=== PATIENT | male | born 1960 | race Caucasian/White ===

== ENCOUNTER → 2022-04-24 09:50 | Outpatient (CLI) | payer OTHER, SELFPAY ==
[2022-04-24 11:27] LABS: COVID19 -Nasal RAPID Negative (Negative)
--- NOTE | 2022-04-26 20:21 | DI.NM.S_ITS ---
DATE OF SERVICE: 04/24/2022 PROCEDURE: Pharmacological perfusion study. INDICATION: Chest pain with underlying diabetes mellitus, hypertension, hyperlipidemia, obesity. RADIOPHARMACEUTICAL: 27.5 millicurie technetium-99m Myoview IV was injected at stress and 26.0 millicurie technetium-99m Myoview IV was injected at rest. CARDIAC STRESS: The patient underwent IV Lexiscan perfusion study under the supervision of an attending staff, as per standard Lexiscan protocol. The patient developed dyspnea and mild chest discomfort with radiation to the left arm during Lexiscan infusion, which got improved in recovery without any reversal agent. Baseline rhythm was sinus with mild sinus bradycardia. During stress, there were no convincing ischemic changes seen. Occasional PACs seen. The patient remained hemodynamically stable. Blood pressure was 150/82 mmHg. RAW DATA: There is increased subdiaphragmatic activity. The patient's weight is 220 pounds. GATED STUDY: Resting LV ejection fraction reported to be 44 percent and stress LV ejection fraction 61 percent. I do not see any obvious wall motion abnormality. Dilated left ventricle with resting end-diastolic volume 190 mL. TID ratio 0.91, which is within normal limits. Lung/heart ratio 0.52, which is abnormal. MYOCARDIAL PERFUSION SCAN: Stress supine, resting supine and stress prone images were compared to each other. Stress supine and resting supine images revealed moderate-size, mild to moderately decreased perfusion of inferior wall extending into the inferoapex, which got significantly improved during stress prone images, however stress prone images remaining have mildly decreased perfusion of inferior apex. No reversible ischemia. CONCLUSION: 1. No obvious reversible ischemia. 2. Evidence of diaphragmatic tissue attenuation artifact, which got significantly improved during stress prone images, as stated above, with some persistent inferoapical defect. Inferior wall and apex moving well without any obvious wall motion abnormality during stress gated images. Hence, most likely we are dealing with tissue attenuation artifact. Hence, we will call this study likely a normal myocardial perfusion study however, left ventricle is dilated. Lung/heart ratio 0.52, which is abnormal, suggestive of elevated filling pressure. Consider getting 2D echo to make sure there is no valvular pathology or diastolic dysfunction. In absence of reversible ischemia and preserved systolic function during stress, in that context, overall, this is a low-risk myocardial perfusion scan. Correlate clinically. Neptali Prince - [employer] CAR/fn/mario doc#: [id number]/job#: [id number] dd: 04/26/2022 16:44:00 dt: 04/26/2022 20:07:00 DICTATING MD/COPIES TO: Nori Argueta MD COPIES MNE: DAILY;
== END ==
PROVIDERS: PCP Internal Medicine; Referring Provider Family Medicine; Visit Provider Family Medicine
DX: R07.89 Other chest pain (principal); E11.9 Type 2 diabetes mellitus without complications; I10 Essential (primary) hypertension; E78.5 Hyperlipidemia, unspecified; E66.9 Obesity, unspecified; Z20.822 Contact with and (suspected) exposure to COVID-19
CPT/HCPCS: 78452; 87635; 93017; A9502; J2785

== ENCOUNTER 2024-02-12 08:30 | Outpatient (RCR) | payer MEDICARE, SELFPAY | END 2024-02-12 10:30 | LOC: PUL 08:30 | PROVIDERS: PCP Internal Medicine; Referring Provider Internal Medicine Critical Care Medicine; Visit Provider Internal Medicine Critical Care Medicine | DX: J44.9 Chronic obstructive pulmonary disease, unspecified (principal) | CPT/HCPCS: 94626; G0237; G0238 ==

== ENCOUNTER 2024-06-20 21:53 | Emergency (ER) | payer MEDICARE, MEDICAID, SELFPAY ==
[2024-06-20] VITALS (39 sets, daily range): BP systolic 77–150; BP diastolic 48–76; PULSE 88–102; RESP 14–30; O2SAT 95–100
[2024-06-20] MEDS: EPINEPHrine 1 MG/10 ML SYRINGE IV (21:53)
[2024-06-20] MEDS: EPINEPHrine 1 MG/ML IV (21:53)
--- NOTE | 2024-06-20 22:00 | PC.NURSE ---
2129: Patient was found in vehicle with agonal breathing and no pulse around 2129. 2134: Was pulled from vehicle and CPR was started 2139: EMS arrived where an IO was placed. 2144: First dose of 1mg Epi given. Igel placed by EMS. Patient was moved to [facility] and transferred to [facility]. Patient in [facility]. 2148: 1mg IV Epi given 2149: IO failed 2152: ROSC. Pulse 117. 2154: 20g JIM placed. Blood drawn. 2155: BP 191/91 2199: 20g RFA placed 2201: 400mg IV Ketamine given 2204: ET tube placed. 7.5 22.5 @ teeth, color change 2204: 61/35 HR 94 2205: Hutson placed 2206: Epi drip started, 7.5ml/hr, RFA 2210: 106/51 HR 90 O2 85 2212: xray present 8: 83/48 HR 100. O2 93%. Epi paused d/t line occlusion restarted now 2220: 100mg IV ketamine 2220: 83/50 HR 100 O2 95% 2223: 86/53 HR 96 2225: JIM PIV removed 222: 74/41 HR 92 2229: Epi 11.2ml/hr BP 77/48 HR 101 O2 98 2232: Norepi 0.05mcg/kg/min 20.6ml/hr 2238: Vent settings TV 500, Peep 5, 100% O2, Set rate 20.
--- NOTE | 2024-06-20 22:01 | ED.GENADULT ---
HPI - General Adult General Chief complaint: Unresponsive Stated complaint: unresponsive Time Seen by Provider: 06/20/24 21:59 Source: family Mode of arrival: Family Vehicle Limitations: altered mental status History of Present Illness HPI narrative: Patient was a 64-year-old male. He was called to the parking lot of the entrance of the emergency department secondary to an individual in respiratory distress. I arrived to the car finding the patient with agonal breathing and cyanotic in color. Initial pulse check revealed the patient had no carotid pulse. The patient was removed from the vehicle and placed on the ground next to the car. CPR was administered. Equipment was brought from the emergency department. Patient was given breasts by bag-valve. He was placed on a monitor in the parking lot. First pulse check showed that the patient was in [place]. CPR was continued. EMS arrived. IO started in the field by EMS. 1 mg of epinephrine was administered. CPR was continued. LMA was placed and field by EMS. Patient was moved to a gurney and brought into resuscitation room 1. Had a discussion with the family who came with the patient. Patient has a history of COPD. Also has a history of insulin-dependent diabetes, hypertension, obstructive sleep apnea. Patient just flew to [facility] from out of [place]. In route home patient started to have shortness of breath and what sounds like a ?impending sense of doom? patient became more short of breath during his ride home and was breathing and conscious when they pulled into the emergency department parking lot. Patient was unable to provide any HPI. Related Data Home Medications Medication Instructions Recorded Confirmed amlodipine 5 mg tablet 5 mg PO DAILY 08/20/23 04/21/24 atorvastatin 20 mg tablet 20 mg PO BEDTIME 08/20/23 04/21/24 budesonide 160 mcg-glycopyr 9 2 inh inhalation BID 08/20/23 04/21/24 mcg-formot 4.8 mcg/actuation HFA inhaler (Breztri Aerosphere) fluticasone propionate 50 2 spray intranasal QDAY 08/20/23 04/21/24 mcg/actuation nasal spray,suspension (Allergy Relief (fluticasone)) furosemide 20 mg tablet 20 mg PO DAILY 08/20/23 04/21/24 insulin glargine U-300 conc 300 50 unit SUBCUT DAILY 02/27/24 10/29/24 unit/mL (3 mL) subcutaneous pen (Toujeo Max U-300 SoloStar) lisinopril 40 mg tablet 40 mg PO DAILY 08/20/23 04/21/24 metformin 850 mg tablet 850 mg PO TID 08/20/23 04/21/24 metoprolol succinate 50 mg 50 mg PO DAILY 08/20/23 04/21/24 tablet,extended release 24 hr omeprazole 20 mg tablet,delayed 20 mg PO DAILY 08/20/23 04/21/24 release tamsulosin 0.4 mg capsule 0.4 mg PO DAILY 08/20/23 04/21/24 Previous Rx's Medication Instructions Recorded azithromycin 250 mg tablet 250 mg PO 3XW #36 tabs 08/21/23 Portable Oxygen #1 ea 12/09/23 Allergies Allergy/AdvReac Type Severity Reaction Status Date / Time No Known Drug Allergies Allergy Unverified 04/21/24 13:50 Review of Systems Review of Systems ROS Unobtainable: Unobtainable due to medical condition Patient History Social History Smoking Status: Former smoker Smoking Status: Former smoker Exam Initial Vital Signs Initial Vital Signs: Vital Signs Pulse Rate 96 H 06/20/24 22:28 Respiratory Rate 18 06/20/24 22:28 Blood Pressure 77/48 L 06/20/24 22:28 Pulse Oximetry 97 06/20/24 22:28 Oxygen Delivery Method Mechanical Ventilation 06/20/24 22:28 Const General: in distress and ill appearing [facility] Head: normal to inspection and normocephalic Resp Other: Respiratory distress, agonal breathing, cyanotic Cardio Other: Initial rhythm check PA, no initial carotid or radial pulse felt. GI Inspection: non-distended Skin Other: No open wounds noted Extrem Other: No gross deformities Procedures Central Line Placement Right IJ: Patient Placed on Monitor/Pulse Ox: Yes MD Prep: mask, gown and gloves Central Line Prep: Povidone-Iodine 1% Local Anesthetic: lidocaine 1% Amount of anesthesia used (mL): 5 Ultrasound Used for Placement: Yes Central Line Lumen Inserted: triple Post Procedure: sterile dressing applied and line stabilization device Post Procedure X-Ray: tip of catheter in good position Patient Tolerated Procedure: No complications Intubation sedative: Ketamine Mg Given: 400 paralytic: other (None) Laryngoscope: other ([place] scope) ET Tube Size: 7.5 ET Tube Uncuffed: Yes Tube Secured Location: teeth Tube Placement Confirmation: Visualized tube passing through cords, Equal breath sounds bilaterally, Confirmation by capnometry and Chest Xray Patient Tolerated Procedure: Well Course Orders Ordered: ED Orders 06/20/24 21:58 Complete Blood Count AUTO DIFF Stat Comprehensive Metabolic Panel Stat Ethanol (ETOH) Stat Lactate (Lactic Acid) Stat Lipase Stat Magnesium Stat PTT Partial Thromboplastin Luther Stat Phosphorous Stat Prothrombin Time INR Stat Troponin & CK Cardiac Panel Stat 06/20/24 22:00 XR chest 1V Stat ABG [Arterial Blood Gas] STAT EKG-12 Lead Stat 06/20/24 22:42 XR chest 1V Stat 06/20/24 23:06 CT angio chest PE protocol Stat CT head/brain wo con Stat 06/20/24 23:51 BNP [NT-proBNP (BNP-Adult 18+)] Stat Blood Culture Stat 06/21/24 00:00 Urine Drug Screen, Rapid Stat Midazolam HCl 50 mg/ Dextrose 50 mls @ 0 mls/hr IV TITRATE PRN; Protocol PRN Reason: Sedation Last Titration: 06/21/24 00:42 Dose: 5 mg/hr, 5 mls/hr Documented By: Titration: 06/21/24 00:26 Dose: 4 mg/hr, 4 mls/hr Documented By: Titration: 06/20/24 23:50 Dose: 5 mg/hr, 5 mls/hr Documented By: Titration: 06/20/24 23:14 Dose: 4 mg/hr, 4 mls/hr Documented By: Admin: 06/20/24 22:57 Dose: 2 mg/hr, 2 mls/hr Documented By: RL Fentanyl 1,000 mcg/ Dextrose 250 mls @ 19.313 mls/hr IV TITRATE KAUSHIK; Protocol Last Admin: 06/20/24 22:57 Dose: 1 mcg/kg/hr, 27.59 mls/hr Documented By: RL NOREPINEPHRINE BITARTRATE/D5W (Levophed) 4 mg in 250 mls @ 41.385 mls/hr IV TITRATE KAUSHIK; Protocol Last Admin: 06/20/24 22:32 Dose: 0.1 mcg/kg/min, 41.385 mls/hr Documented By: AMADOR Epinephrine HCl 4 mg/ Dextrose 250 mls @ 3.75 mls/hr IV TITRATE KAUSHIK; Protocol Last Titration: 06/20/24 22:29 Dose: 3 mcg/min, 11.25 mls/hr Documented By: Admin: 06/20/24 22:07 Dose: 2 mcg/min, 7.5 mls/hr Documented By: AMADOR Sodium Chloride (Normal Saline 0.9%) 1,000 mls @ 125 mls/hr IV CONT KAUSHIK Last Admin: 06/21/24 00:27 Dose: 125 mls/hr Documented By: RAFFI Discontinued Medications Epinephrine HCl (Epinephrine 1 Mg/10 Ml Syringe) 1 mg IV NOW ONE Stop: 06/20/24 21:46 Last Admin: 06/20/24 21:53 Dose: 1 mg Documented By: AMADOR Epinephrine HCl (Epinephrine 1 Mg/Ml) 1 mg IV NOW ONE Stop: 06/20/24 21:50 Last Admin: 06/20/24 21:53 Dose: 1 mg Documented By: AMADOR Sodium Chloride (Normal Saline 0.9%) 1,000 mls @ 1,000 mls/hr IV BOLUS ONE Stop: 06/20/24 22:58 Last Admin: 06/21/24 00:29 Dose: Not Given Documented By: RAFFI Piperacillin Sod/Tazobactam (Sod 4.5 gm/ Sodium Chloride) 100 mls @ 200 mls/hr IV NOW ONE Stop: 06/21/24 02:27 Last Admin: 06/21/24 02:30 Dose: 200 mls/hr Documented By: RAFFI Ketamine HCl (Ketamine 500 Mg/5 Ml Inj) 400 mg IV NOW ONE Stop: 06/20/24 22:03 Last Admin: 06/20/24 22:02 Dose: 400 mg Documented By: AMADOR Ketamine HCl (Ketamine 500 Mg/5 Ml Inj) 100 mg IV NOW ONE Stop: 06/20/24 22:21 Last Admin: 06/20/24 22:20 Dose: 100 mg Documented By: AMADOR Vital Signs Vital signs: Vital Signs - 8 hr 06/20/24 22:28 06/20/24 22:28 06/20/24 22:30 Pulse Rate 96 H Respiratory Rate 18 Blood Pressure 77/48 L 77/52 L Pulse Oximetry 97 Oxygen Delivery Method Mechanical Ventilation 06/20/24 22:30 06/20/24 22:33 06/20/24 22:33 Pulse Rate 99 H 97 H Respiratory Rate 24 17 Blood Pressure 90/55 L Pulse Oximetry 98 98 Oxygen Delivery Method 06/20/24 22:35 06/20/24 22:35 06/20/24 22:38 Pulse Rate 102 H Respiratory Rate 30 H Blood Pressure 93/63 118/65 Pulse Oximetry 99 Oxygen Delivery Method 06/20/24 22:38 06/20/24 22:40 06/20/24 22:40 Pulse Rate 102 H 100 H Respiratory Rate 16 14 Blood Pressure 147/76 H Pulse Oximetry 100 99 Oxygen Delivery Method 06/20/24 22:43 06/20/24 22:43 06/20/24 22:45 Pulse Rate 101 H Respiratory Rate 21 Blood Pressure 142/65 H 137/60 Pulse Oximetry 99 Oxygen Delivery Method 06/20/24 22:45 06/20/24 22:48 06/20/24 22:48 Pulse Rate 95 H 102 H Respiratory Rate 20 21 Blood Pressure 133/64 Pulse Oximetry 98 98 Oxygen Delivery Method 06/20/24 22:51 06/20/24 22:51 06/20/24 22:53 Pulse Rate 93 H Respiratory Rate 19 Blood Pressure 128/63 102/55 L Pulse Oximetry 96 Oxygen Delivery Method 06/20/24 22:53 06/20/24 22:55 06/20/24 22:55 Pulse Rate 93 H 95 H Respiratory Rate 20 20 Blood Pressure 116/58 L Pulse Oximetry 96 95 Oxygen Delivery Method 06/20/24 22:58 06/20/24 22:58 06/20/24 23:00 Pulse Rate 94 H Respiratory Rate 20 Blood Pressure 119/56 L 114/58 L Pulse Oximetry 95 Oxygen Delivery Method 06/20/24 23:00 06/20/24 23:03 06/20/24 23:03 Pulse Rate 94 H 99 H Respiratory Rate 20 22 Blood Pressure 108/62 Pulse Oximetry 95 96 Oxygen Delivery Method 06/20/24 23:05 06/20/24 23:05 06/20/24 23:08 Pulse Rate 90 89 Respiratory Rate 20 20 Blood Pressure 120/58 L Pulse Oximetry 96 96 Oxygen Delivery Method 06/20/24 23:08 06/20/24 23:11 06/20/24 23:11 Pulse Rate 96 H Respiratory Rate 20 Blood Pressure 110/55 L 118/60 Pulse Oximetry 96 Oxygen Delivery Method 06/20/24 23:13 06/20/24 23:13 06/20/24 23:15 Pulse Rate 96 H Respiratory Rate 18 Blood Pressure 115/56 L 98/55 L Pulse Oximetry 96 Oxygen Delivery Method 06/20/24 23:15 06/20/24 23:17 06/20/24 23:17 Pulse Rate 93 H 94 H Respiratory Rate 20 20 Blood Pressure 105/58 L Pulse Oximetry 95 96 Oxygen Delivery Method 06/20/24 23:20 06/20/24 23:20 06/20/24 23:25 Pulse Rate 96 H 88 Respiratory Rate 20 20 Blood Pressure 109/63 Pulse Oximetry 97 97 Oxygen Delivery Method 06/20/24 23:25 06/20/24 23:27 06/20/24 23:27 Pulse Rate 94 H Respiratory Rate 20 Blood Pressure 137/62 140/61 Pulse Oximetry 96 Oxygen Delivery Method 06/20/24 23:29 06/20/24 23:29 06/20/24 23:30 Pulse Rate 93 H 98 H Respiratory Rate 20 19 Blood Pressure 128/58 L Pulse Oximetry 97 96 Oxygen Delivery Method 06/20/24 23:30 06/20/24 23:32 06/20/24 23:32 Pulse Rate 101 H Respiratory Rate 20 Blood Pressure 132/60 131/65 Pulse Oximetry 95 Oxygen Delivery Method 06/20/24 23:35 06/20/24 23:35 06/20/24 23:37 Pulse Rate 91 H 94 H Respiratory Rate 20 21 Blood Pressure 150/65 H Pulse Oximetry 97 Oxygen Delivery Method 06/20/24 23:37 06/20/24 23:41 06/20/24 23:41 Pulse Rate 91 H Respiratory Rate 18 Blood Pressure 136/73 149/63 H Pulse Oximetry 96 Oxygen Delivery Method 06/20/24 23:42 06/20/24 23:42 06/20/24 23:43 Pulse Rate 92 H Respiratory Rate 20 Blood Pressure 115/59 L 133/63 Pulse Oximetry 97 Oxygen Delivery Method 06/20/24 23:43 06/20/24 23:45 06/20/24 23:45 Pulse Rate 94 H 95 H Respiratory Rate 20 20 Blood Pressure 131/70 Pulse Oximetry 97 97 Oxygen Delivery Method 06/20/24 23:48 06/20/24 23:48 06/20/24 23:50 Pulse Rate 94 H 95 H Respiratory Rate 20 20 Blood Pressure 123/65 Pulse Oximetry 97 Oxygen Delivery Method 06/20/24 23:50 06/20/24 23:50 06/20/24 23:53 Pulse Rate 92 H Respiratory Rate 20 Blood Pressure 104/60 123/59 L Pulse Oximetry 98 Oxygen Delivery Method Mechanical Ventilation 06/20/24 23:53 06/20/24 23:55 06/20/24 23:55 Pulse Rate 89 91 H Respiratory Rate 20 20 Blood Pressure 120/63 Pulse Oximetry 98 98 Oxygen Delivery Method 06/20/24 23:58 06/20/24 23:58 06/21/24 00:00 Pulse Rate 91 H 89 Respiratory Rate 20 20 Blood Pressure 116/56 L Pulse Oximetry 98 98 Oxygen Delivery Method Mechanical Ventilation 06/21/24 00:00 06/21/24 00:03 06/21/24 00:03 Pulse Rate 90 Respiratory Rate 20 Blood Pressure 130/60 128/58 L Pulse Oximetry 98 Oxygen Delivery Method 06/21/24 00:05 06/21/24 00:05 06/21/24 00:08 Pulse Rate 94 H 93 H Respiratory Rate 20 20 Blood Pressure 124/57 L Pulse Oximetry 97 97 Oxygen Delivery Method 06/21/24 00:08 06/21/24 00:10 06/21/24 00:10 Pulse Rate 91 H Respiratory Rate 20 Blood Pressure 126/63 123/64 Pulse Oximetry 96 Oxygen Delivery Method 06/21/24 00:13 06/21/24 00:13 06/21/24 00:15 Pulse Rate 94 H Respiratory Rate 20 Blood Pressure 123/66 124/61 Pulse Oximetry 96 Oxygen Delivery Method 06/21/24 00:15 06/21/24 00:18 06/21/24 00:18 Pulse Rate 95 H 96 H Respiratory Rate 20 20 Blood Pressure 122/60 Pulse Oximetry 96 96 Oxygen Delivery Method 06/21/24 00:20 06/21/24 00:20 06/21/24 00:23 Pulse Rate 90 Respiratory Rate 20 Blood Pressure 104/55 L 116/57 L Pulse Oximetry 96 Oxygen Delivery Method 06/21/24 00:23 06/21/24 00:25 06/21/24 00:25 Pulse Rate 85 87 Respiratory Rate 20 20 Blood Pressure 129/58 L Pulse Oximetry 96 96 Oxygen Delivery Method 06/21/24 00:28 06/21/24 00:28 06/21/24 00:30 Pulse Rate 90 92 H Respiratory Rate 20 20 Blood Pressure 134/61 Pulse Oximetry 95 95 Oxygen Delivery Method Mechanical Ventilation 06/21/24 00:31 06/21/24 00:31 06/21/24 00:33 Pulse Rate 87 Respiratory Rate 20 Blood Pressure 148/64 H 115/59 L Pulse Oximetry 95 Oxygen Delivery Method 06/21/24 00:33 06/21/24 00:35 06/21/24 00:35 Pulse Rate 88 86 Respiratory Rate 20 20 Blood Pressure 116/59 L Pulse Oximetry 95 96 Oxygen Delivery Method 06/21/24 00:38 06/21/24 00:38 06/21/24 00:40 Pulse Rate 90 Respiratory Rate 20 Blood Pressure 132/61 135/62 Pulse Oximetry 96 Oxygen Delivery Method 06/21/24 00:40 06/21/24 00:43 06/21/24 00:43 Pulse Rate 92 H 90 Respiratory Rate 20 20 Blood Pressure 138/60 Pulse Oximetry 95 94 Oxygen Delivery Method 06/21/24 00:45 06/21/24 00:45 06/21/24 00:48 Pulse Rate 91 H Respiratory Rate 20 Blood Pressure 141/65 H 125/61 Pulse Oximetry 94 Oxygen Delivery Method 06/21/24 00:48 06/21/24 00:50 06/21/24 00:50 Pulse Rate 91 H 90 Respiratory Rate 20 20 Blood Pressure 134/64 Pulse Oximetry 95 95 Oxygen Delivery Method 06/21/24 00:53 06/21/24 00:53 06/21/24 01:00 Pulse Rate 90 88 Respiratory Rate 20 20 Blood Pressure 125/59 L Pulse Oximetry 95 96 Oxygen Delivery Method 06/21/24 01:00 06/21/24 01:10 06/21/24 01:10 Pulse Rate 87 Respiratory Rate 20 Blood Pressure 122/60 131/60 Pulse Oximetry 96 Oxygen Delivery Method 06/21/24 01:20 06/21/24 01:20 06/21/24 01:30 Pulse Rate 89 91 H Respiratory Rate 20 20 Blood Pressure 132/63 Pulse Oximetry 96 96 Oxygen Delivery Method Mechanical Ventilation 06/21/24 01:30 06/21/24 01:40 06/21/24 01:40 Pulse Rate 89 Respiratory Rate 20 Blood Pressure 125/57 L 128/60 Pulse Oximetry 97 Oxygen Delivery Method 06/21/24 01:50 06/21/24 01:50 06/21/24 02:00 Pulse Rate 84 90 Respiratory Rate 20 20 Blood Pressure 122/57 L Pulse Oximetry 97 97 Oxygen Delivery Method Mechanical Ventilation 06/21/24 02:00 06/21/24 02:10 06/21/24 02:10 Pulse Rate 84 Respiratory Rate 20 Blood Pressure 130/60 118/58 L Pulse Oximetry 96 Oxygen Delivery Method 06/21/24 02:20 06/21/24 02:20 06/21/24 02:30 Pulse Rate 88 82 Respiratory Rate 20 20 Blood Pressure 123/58 L Pulse Oximetry 95 95 Oxygen Delivery Method 06/21/24 02:30 06/21/24 02:39 06/21/24 02:40 Pulse Rate 88 Respiratory Rate 20 Blood Pressure 132/61 131/63 Pulse Oximetry 95 Oxygen Delivery Method 06/21/24 02:40 06/21/24 02:50 06/21/24 02:50 Pulse Rate 90 90 Respiratory Rate 20 20 Blood Pressure 115/59 L Pulse Oximetry 95 95 Oxygen Delivery Method Mechanical Ventilation Medical Decision Making Medical Records Medical records reviewed: Yes I reviewed the patient's medical records. Lab Data Lab results reviewed: Yes I reviewed the patient's lab results. 06/20/24 21:58 06/20/24 21:58 Labs: Lab Results 06/20/24 06/20/24 06/20/24 Range/Units 21:58 22:34 23:51 WBC 23.4 H (4.5-11.0) X10^3/uL RBC 5.70 (4.5-5.9) X10^6/uL Hgb 15.0 (13.5-17.5) g/dL Hct 47.7 (41-53) % MCV 83.7 (80-100) fL MCH 26.4 (26-34) PG MCHC 31.5 (30-36) % RDW 16.8 H (11.6-14.8) % Plt Count 374 (150-400) X10^3/uL Neut % (Auto) Not Reportable Lymph % (Auto) Not Reportable [place] % (Auto) Not Reportable Eos % (Auto) Not Reportable Baso % (Auto) Not Reportable Lymph # (Auto) Not Reportable [place] # (Auto) Not Reportable Baso # (Auto) Not Reportable Total Counted 100 Seg Neutrophils % 36.0 L (38-70) % Band Neutrophils % 1.0 L (3-7) % Lymphocytes % (Manual) 57.0 H (25-45) % Monocytes % (Manual) 4.0 (2-11) % Eosinophils % (Manual) 1.0 L (2-4) % Basophils % (Manual) 1.0 (0-1) % Neutrophils # (Manual) 8658 H (6742-2908) /uL RBC Morphology See below Anisocytosis 1+ H PT 11.6 (9.4-12.5) SECONDS INR 1.0 (0.9-1.3) APTT 38 H (25.1-36.5) SECONDS ABG Sample Site Left radial ABG pH 7.09 L* (7.35-7.45) ABG pCO2 90.5 H* (35-45) mmHg ABG pO2 131 H (80-100) mmHg ABG HCO3 28 H (23-27) mmol/L ABG Total CO2 28 H (23-27) mmol/L ABG O2 Saturation 97 (95-100) % ABG Base Excess -5.1 L (-2-3) mmol/L Sreedhar Test Positive Respiration Rate 15 O2 Delivery Device Adult ventilator Mode of Support Assist cont ventilat FiO2 % 100 % % PEEP or CPAP 8 Sodium 141 (137-145) mmol/L Potassium 4.8 (3.4-5.1) mmol/L Chloride 106 (98-107) mmol/L Carbon Dioxide 22 (22-32) mmol/L BUN 17 (9-20) mg/dL Creatinine 0.89 (0.66-1.25) mg/dL Estimated GFR > 60 (>60) mL/min BUN/Creatinine Ratio 19.1 (6-22) Glucose 325 H (80-110) mg/dL Lactate 4.6 H* 2.3 H (0.7-2.1) mmol/L Calcium 9.2 (8.4-10.2) mg/dL Phosphorus 6.4 H (2.3-3.7) mg/dL Magnesium 2.0 (1.6-2.3) mg/dL Total Bilirubin 0.8 (0.2-1.3) mg/dL AST 82 H (17-59) IU/L ALT 53 H (<50) IU/L Alkaline Phosphatase 90 (38-126) U/L Total Creatine Kinase 133 (55-170) U/L Troponin I 0.050 H (0.01-0.034) ng/mL NT-Pro-B Natriuret Pep 187 H (<125) pg/mL Total Protein 7.6 (6.3-8.2) g/dL Albumin 4.1 (3.5-5.0) g/dL Globulin 3.5 (1.7-4.1) g/dL Albumin/Globulin Ratio 1.2 (1.0-2.8) Lipase 109 (23-300) U/L U Opiates 300ng/mL cut (Negative) Ur Oxycodone Screen (Negative) Urine Methadone Screen (Negative) Ur Barbiturates Screen (Negative) U Tricyclic Antidepress (Negative) Ur Phencyclidine Scrn (Negative) Ur Amphetamines Screen (Negative) U Methamphetamines Scrn (Negative) Ur MDMA Scrn (Ecstasy) (Negative) U Benzodiazepines Scrn (Negative) Urine Cocaine Screen (Negative) U Marijuana (THC) Screen (Negative) Urine pH (Normal) Urine Specific [place] (Normal) Ethyl Alcohol < 10 ( - 10) mg/dL Ur Creatinine (Normal) 06/21/24 Range/Units 00:00 WBC (4.5-11.0) X10^3/uL RBC (4.5-5.9) X10^6/uL Hgb (13.5-17.5) g/dL Hct (41-53) % MCV (80-100) fL MCH (26-34) PG MCHC (30-36) % RDW (11.6-14.8) % Plt Count (150-400) X10^3/uL Neut % (Auto) Lymph % (Auto) [place] % (Auto) Eos % (Auto) Baso % (Auto) Lymph # (Auto) [place] # (Auto) Baso # (Auto) Total Counted Seg Neutrophils % (38-70) % Band Neutrophils % (3-7) % Lymphocytes % (Manual) (25-45) % Monocytes % (Manual) (2-11) % Eosinophils % (Manual) (2-4) % Basophils % (Manual) (0-1) % Neutrophils # (Manual) (3080-8620) /uL RBC Morphology Anisocytosis PT (9.4-12.5) SECONDS INR (0.9-1.3) APTT (25.1-36.5) SECONDS ABG Sample Site ABG pH (7.35-7.45) ABG pCO2 (35-45) mmHg ABG pO2 (80-100) mmHg ABG HCO3 (23-27) mmol/L ABG Total CO2 (23-27) mmol/L ABG O2 Saturation (95-100) % ABG Base Excess (-2-3) mmol/L Sreedhar Test Respiration Rate O2 Delivery Device Mode of Support FiO2 % % PEEP or CPAP Sodium (137-145) mmol/L Potassium (3.4-5.1) mmol/L Chloride (98-107) mmol/L Carbon Dioxide (22-32) mmol/L BUN (9-20) mg/dL Creatinine (0.66-1.25) mg/dL Estimated GFR (>60) mL/min BUN/Creatinine Ratio (6-22) Glucose (80-110) mg/dL Lactate (0.7-2.1) mmol/L Calcium (8.4-10.2) mg/dL Phosphorus (2.3-3.7) mg/dL Magnesium (1.6-2.3) mg/dL Total Bilirubin (0.2-1.3) mg/dL AST (17-59) IU/L ALT (<50) IU/L Alkaline Phosphatase (38-126) U/L Total Creatine Kinase (55-170) U/L Troponin I (0.01-0.034) ng/mL NT-Pro-B Natriuret Pep (<125) pg/mL Total Protein (6.3-8.2) g/dL Albumin (3.5-5.0) g/dL Globulin (1.7-4.1) g/dL Albumin/Globulin Ratio (1.0-2.8) Lipase (23-300) U/L U Opiates 300ng/mL cut Negative (Negative) Ur Oxycodone Screen Negative (Negative) Urine Methadone Screen Negative (Negative) Ur Barbiturates Screen Negative (Negative) U Tricyclic Antidepress Negative (Negative) Ur Phencyclidine Scrn Negative (Negative) Ur Amphetamines Screen Negative (Negative) U Methamphetamines Scrn Negative (Negative) Ur MDMA Scrn (Ecstasy) Negative (Negative) U Benzodiazepines Scrn Negative (Negative) Urine Cocaine Screen Negative (Negative) U Marijuana (THC) Screen Negative (Negative) Urine pH Normal (Normal) Urine Specific [place] Normal (Normal) Ethyl Alcohol ( - 10) mg/dL Ur Creatinine Normal (Normal) Imaging Data CT scan - head: Radiologist's Impression: PROCEDURE: CT HEAD/BRAIN WO CON INDICATIONS: AMS TECHNIQUE: Noncontrast 4.5 mm thick angled axial sections acquired from the foramen magnum to the vertex, with coronal and sagittal reformats. For radiation dose reduction, the following was used: automated exposure control, adjustment of mA and/or kV according to patient size. COMPARISON: None. FINDINGS: Image quality: Diagnostic. CSF spaces: Basal cisterns are patent. No extra-axial fluid collections. Ventricles are normal in size and shape. Brain: No midline shift. No intracranial masses or hemorrhage. Lucas-white matter interface is within normal limits. Skull and face: Calvarium and visualized facial bones are intact, without suspicious lesions. Sinuses: Visualized sinuses and mastoids are clear. Endotracheal tube. IMPRESSION: No acute intracranial pathology. Chest x-ray: Radiologist's Impression: PROCEDURE: XR CHEST 1V INDICATIONS: S/P cardiac arrest TECHNIQUE: One view of the chest was acquired. COMPARISON: None. FINDINGS: Surgical changes and devices: Endotracheal tube in the midtrachea. Lungs and pleura: No consolidation. Bilateral prominent pulmonary markings. No pleural effusions or pneumothorax. Mediastinum: Mediastinal contours appear normal. Heart size is prominent heart size. Bones and chest wall: No suspicious bony lesions. Overlying soft tissues appear unremarkable. IMPRESSION: 1. Endotracheal tube in the midtrachea. 2. Pulmonary edema. Repeat chest x-ray: Radiologist's Impression: PROCEDURE: XR CHEST 1V INDICATIONS: Central line placement, OG placement TECHNIQUE: One view of the chest was acquired. COMPARISON: [facility], CT, CT ANGIO CHEST PE PROTOCOL, 06/20/2024, 23:08. [facility], CR, XR CHEST 1V, 06/20/2024, 21:58. FINDINGS: Surgical changes and devices: Endotracheal tube in the midtrachea. Enteric tube coursing into the stomach. Right IJ central venous line with the catheter tip at the upper 3rd of the SVC. Lungs and pleura: Diffuse prominent pulmonary markings. No pleural effusions or pneumothorax. Mediastinum: Mediastinal contours appear normal. Heart size is enlarged. Bones and chest wall: No suspicious bony lesions. Overlying soft tissues appear unremarkable. IMPRESSION: 1. Tubes and lines project in the expected locations. 2. Pulmonary edema. CT scan - chest: Radiologist's Impression: PROCEDURE: CT ANGIO CHEST PE PROTOCOL INDICATIONS: PEA arrest TECHNIQUE: After the administration of intravenous contrast, 2 mm thick sections acquired from the pulmonary apices to the posterior costophrenic angles. 3-dimensional maximum intensity projection (MIP) coronal and sagittal reformats were then acquired through the thorax. For radiation dose reduction, the following was used: automated exposure control, adjustment of mA and/or kV according to patient size. COMPARISON: [facility], CT, CT CHEST WITH CONTRAST, 07/19/2021, 12:41. FINDINGS: Image quality: Diagnostic. Pulmonary arteries: Pulmonary arteries are normal in size, and demonstrate no intraluminal filling defects to suggest central pulmonary embolism. Lower Neck: No enlarged lymph nodes. Thyroid: No thyroid nodules which require sonographic follow up, per consensus guidelines. Axillae: No enlarged lymph nodes. Chest Wall: Unremarkable. Bones: Unremarkable. Lungs and Pleura: Endotracheal tube in the midtrachea 4.5 cm above the singh. No significant pleural effusions. No pneumothorax. Interlobular septal thickening suggesting pulmonary edema. Dependent consolidative opacities. A few other patchy areas of opacity. -Right upper lobe pulmonary nodule measuring 2.2 cm, (6/150), new. -Right apex pulmonary nodule measuring 0.4 cm, (6/69), unchanged. Heart: Heart size is normal. No pericardial effusion. Thoracic Vessels: No aortic aneurysm. Mediastinum and Mayuri: -Right hilar lymph node measuring 1.9 cm, (5/71). -Right subcarinal lymph node measuring 1.5 cm, (5/84). Esophagus: Enteric tube coursing into the stomach. No wall thickening. No hiatal hernia. Upper Abdomen: Probable hepatic steatosis. No adrenal nodule. IMPRESSION: 1. No pulmonary embolism. 2. Bilateral dependent airspace opacity. This could represent compressive atelectasis. There is additional scattered opacity which could represent mild infectious/inflammatory etiology. Suspected pulmonary edema. 3. Right upper lobe pulmonary nodule measuring 2.2 cm. Suspicious for lung cancer. 4. Right hilar and subcarinal adenopathy suspicious for metastatic disease. Preliminary findings were discussed with Dr. Scherer at 1:50 a.m. ECG Data Attestation: I personally reviewed and interpreted this ECG as follows: Interpretation: Atrial fibrillation Normal axis Normal QRS Nonspecific ST T wave changes MDM Narrative Medical decision making narrative: 18 minutes total CPR time however this included the time that the patient was being treated in the parking lot outside of the emergency department. He received 2 rounds of epinephrine. Initial rhythm was PEA. After the 2nd round of epinephrine patient had return of spontaneous circulation. Was maintaining heart rate and blood pressure for a period of time however became hypotensive. He was started on an epi drip. Right IJ was placed. Patient was then started on norepinephrine. Since that time he has been stable with his blood pressures with a mean arterial pressure greater than 60. Initially the patient was intubated with an eye gel by EMS. This was converted to an endotracheal tube without difficulty with 1st pass success. Given his labile blood pressures he was sedated on fentanyl and Versed and has been very calm since that time. I did discuss the case with Dr. Mcclain intensive care provider Adrianna casey who accepts the patient for transfer. CT scan of the head is unremarkable. CT scan of the chest shows no signs of pulmonary embolism. It does show a pulmonary nodule and hilar lymphadenopathy concern for metastatic disease. I discussed this with the family at bedside and they stated that they had no knowledge of potential oncology process. Patient was started on Zosyn secondary to presumed aspiration pneumonia. Will transfer patient for higher level of care. Family expressed understanding and agreement. Patient was stable for transport. Critical Care Time Critical Care Time Critical Care Time: Yes Total Critical Care Time: 65 Attestation: The high probability of a clinically significant, sudden or life threatening deterioration of the [] cardiovascular, respiratory system(s) required my full and direct attention, intervention and personal management. The aggregate critical care time was [65] minutes. This time is in addition to time spent performing reported procedures but includes the following: [x] Data Review and interpretation [x] Patient assessment and monitoring of vital signs [x] Documentation [x] Medication orders and management Discharge Plan Departure [facility]position: [facility] Clinical Impression: Cardiac arrest, Pulmonary nodule, Aspiration pneumonia Prescriptions: No Action (DME) Portable Oxygen See Rx Instructions .Route .MEDSUPPLY Qty: 1 0RF Rx Instructions: Continue supplemental oxygen at 2 L. Goal saturations between 90 92%. Toujeo Max U-300 SoloStar 300 unit/mL (3 mL) insulin pen 50 unit SUBCUT DAILY Breztri Aerosphere 160-9-4.8 mcg/actuation HFA aerosol inhaler 2 inh inhalation BID metformin 850 mg tablet 850 mg PO TID atorvastatin 20 mg tablet 20 mg PO BEDTIME furosemide 20 mg tablet 20 mg PO DAILY lisinopril 40 mg tablet 40 mg PO DAILY omeprazole 20 mg tablet,delayed release (DR/EC) 20 mg PO DAILY amlodipine 5 mg tablet 5 mg PO DAILY metoprolol succinate 50 mg tablet extended release 24 hr 50 mg PO DAILY tamsulosin 0.4 mg capsule 0.4 mg PO DAILY fluticasone propionate [Allergy Relief (fluticasone)] 50 mcg/actuation spray,suspension 2 spray intranasal QDAY Rx Instructions: administer into each nostril azithromycin 250 mg tablet 250 mg PO 3XW Qty: 36 3RF Rx Instructions: 1 tab by mouth 3XW M,W,F Referrals: Tigre Smith MD [Primary Care Provider] - Stand Alone Forms: Naloxone Standing Order WAYNE
[2024-06-20] MEDS: KETAMINE 500 MG/5 ML INJ 400 MG IV (22:02)
--- NOTE | 2024-06-20 22:04 | EKG_ITS ---
[facility] [id number] [place] [address] Test Date: 2024-06-20 Pat Name: Neptali Prince Department: Room: Gender: Male Device Engineer: IDANIA : 1960 Requested By: Order Number: [id number] Reading MD: Sreedhar Goldman Measurements Intervals [place] Rate: 85 P: 73 DC: QRS: 87 QRSD: 106 T: 121 QT: 370 QTc: 440 Interpretive Statements Undetermined rhythm Nonspecific ST and T wave abnormality Electronically Signed On 06-25-2024 9:35:10 PST by Sreedhar Goldman
--- NOTE | 2024-06-20 22:05 | EKG_ITS ---
[facility] [address] [place] [address] Test Date: 2024-06-20 Pat Name: Neptali Prince Department: Room: Gender: Male Keno Clerk: IDANIA : 1960 Requested By: Order Number: [id number] Reading MD: Sreedhar Goldman Measurements Intervals [place] Rate: 84 P: [place]: QRS: 87 QRSD: 108 T: 158 QT: 398 QTc: 470 Interpretive Statements Atrial fibrillation Nonspecific ST and T wave abnormality Electronically Signed On 06-25-2024 9:35:16 PST by Sreedhar Goldman
[2024-06-20] MEDS: EPINEPHrine 4 MG in DEXTROSE 5% IN WATER 246 ML 7.5 MG IV (22:07)
[2024-06-20 22:09] LABS: Add Manual Diff / Slide Review YES; Hematocrit 47.7 % (41-53); Mean Corpuscular HGB Conc 31.5 % (30-36); Mean Corpuscular Hemoglobin 26.4 PG (26-34); Mean Corpuscular Volume 83.7 fL (80-100); Platelet Count 374 X10^3/uL (150-400); Red Cell Distribution Width 16.8 % (11.6-14.8); White Blood Cell Count 23.4 X10^3/uL (4.5-11.0)
[2024-06-20 22:15] LABS: Prothrombin Time 11.6 SECONDS (9.4-12.5)
[2024-06-20 22:18] LABS: PTT Partial Thromboplastin Tim 38 SECONDS (25.1-36.5)
[2024-06-20] MEDS: KETAMINE 500 MG/5 ML INJ 100 MG IV (22:20)
[2024-06-20 22:24] LABS: Anisocytosis 1+; Neutrophils Absolute Manual 8658 /uL (3000-5900); Total Cells Counted 100
[2024-06-20] MEDS: NOREPINEPHRINE BITARTRATE/D5W 4 MG/250 ML PLAST..BAG 41.385 MG IV (22:32)
[2024-06-20 22:33] LABS: HEMOLYSIS 76 (0-50); Lactate (Lactic Acid) 4.6 mmol/L (0.7-2.1)
[2024-06-20 22:35] LABS: Alanine Aminotransferase 53 IU/L (<50); Albumin 4.1 g/dL (3.5-5.0); Albumin Globulin Ratio 1.2 (1.0-2.8); Alkaline Phosphatase 90 U/L (38-126); Aspartate Aminotransferase 82 IU/L (17-59); BUN Creatinine Ratio 19.1 (6-22); Bilirubin Total 0.8 mg/dL (0.2-1.3); Blood Urea Nitrogen 17 mg/dL (9-20); Calcium 9.2 mg/dL (8.4-10.2); Carbon Dioxide 22 mmol/L (22-32); Chloride 106 mmol/L (98-107); Creatine Kinase 133 U/L (55-170); Estimated Glomerular Filt Rate > 60 mL/min (>60); Ethanol (ETOH) < 10 mg/dL; Globulin 3.5 g/dL (1.7-4.1); Glucose 325 mg/dL (80-110); Phosphorous 6.4 mg/dL (2.3-3.7); Potassium 4.8 mmol/L (3.4-5.1); Sodium 141 mmol/L (137-145); Total Protein 7.6 g/dL (6.3-8.2)
[2024-06-20 22:37] LABS: Allen Test for ABG Passed? Positive; Base Excess ABG -5.1 mmol/L (-2-3); Blood Gas Collection Site Left Radial; Blood Gas Mode Assist Cont Ventilat; Delivery System Adult Ventilator; HCO3 ABG 28 mmol/L (23-27); Oxygen Saturation ABG 97 % (95-100); PCO2 ABG 90.5 mmHg (35-45); PEEP 8; PO2 ABG 131 mmHg (80-100); Respiratory Rate 15; TCO2 ABG 28 mmol/L (23-27); pH ABG 7.09 (7.35-7.45)
--- NOTE | 2024-06-20 22:42 | DI.RAD.S_ITS ---
PROCEDURE: XR CHEST 1V INDICATIONS: Central line placement, OG placement TECHNIQUE: One view of the chest was acquired. COMPARISON: [facility], CT, CT ANGIO CHEST PE PROTOCOL, 06/20/2024, 23:08. [facility], CR, XR CHEST 1V, 06/20/2024, 21:58. FINDINGS: Surgical changes and devices: Endotracheal tube in the midtrachea. Enteric tube coursing into the stomach. Right IJ central venous line with the catheter tip at the upper 3rd of the SVC. Lungs and pleura: Diffuse prominent pulmonary markings. No pleural effusions or pneumothorax. Mediastinum: Mediastinal contours appear normal. Heart size is enlarged. Bones and chest wall: No suspicious bony lesions. Overlying soft tissues appear unremarkable. IMPRESSION: 1. Tubes and lines project in the expected locations. 2. Pulmonary edema. Dictated by: Onesimo Cisneros M.D. on 06/21/2024 at 0:35 Approved by: Onesimo Cisneros M.D. on 06/21/2024 at 0:36
[2024-06-20 22:43] LABS: Lipase 109 U/L (23-300)
[2024-06-20] MEDS: MIDAZOLAM 50 MG in DEXTROSE 5 % IN WATER 40 ML IV (22:57)
[2024-06-20] MEDS: fentaNYL 1,000 MCG in DEXTROSE 5% IN WATER 230 ML 27.59 MCG IV (22:57)
--- NOTE | 2024-06-20 23:06 | DI.CT.S_ITS ---
PROCEDURE: CT HEAD/BRAIN WO CON INDICATIONS: AMS TECHNIQUE: Noncontrast 4.5 mm thick angled axial sections acquired from the foramen magnum to the vertex, with coronal and sagittal reformats. For radiation dose reduction, the following was used: automated exposure control, adjustment of mA and/or kV according to patient size. COMPARISON: None. FINDINGS: Image quality: Diagnostic. CSF spaces: Basal cisterns are patent. No extra-axial fluid collections. Ventricles are normal in size and shape. Brain: No midline shift. No intracranial masses or hemorrhage. Lucas-white matter interface is within normal limits. Skull and face: Calvarium and visualized facial bones are intact, without suspicious lesions. Sinuses: Visualized sinuses and mastoids are clear. Endotracheal tube. IMPRESSION: No acute intracranial pathology. Dictated by: Onesimo Cisneros M.D. on 06/21/2024 at 0:26 Approved by: Onesiom Cisneros M.D. on 06/21/2024 at 0:28
--- NOTE | 2024-06-20 23:06 | DI.CT.S_ITS ---
PROCEDURE: CT ANGIO CHEST PE PROTOCOL INDICATIONS: PEA arrest TECHNIQUE: After the administration of intravenous contrast, 2 mm thick sections acquired from the pulmonary apices to the posterior costophrenic angles. 3-dimensional maximum intensity projection (MIP) coronal and sagittal reformats were then acquired through the thorax. For radiation dose reduction, the following was used: automated exposure control, adjustment of mA and/or kV according to patient size. COMPARISON: [facility], CT, CT CHEST WITH CONTRAST, 07/19/2021, 12:41. FINDINGS: Image quality: Diagnostic. Pulmonary arteries: Pulmonary arteries are normal in size, and demonstrate no intraluminal filling defects to suggest central pulmonary embolism. Lower Neck: No enlarged lymph nodes. Thyroid: No thyroid nodules which require sonographic follow up, per consensus guidelines. Axillae: No enlarged lymph nodes. Chest Wall: Unremarkable. Bones: Unremarkable. Lungs and Pleura: Endotracheal tube in the midtrachea 4.5 cm above the singh. No significant pleural effusions. No pneumothorax. Interlobular septal thickening suggesting pulmonary edema. Dependent consolidative opacities. A few other patchy areas of opacity. -Right upper lobe pulmonary nodule measuring 2.2 cm, (6/150), new. -Right apex pulmonary nodule measuring 0.4 cm, (6/69), unchanged. Heart: Heart size is normal. No pericardial effusion. Thoracic Vessels: No aortic aneurysm. Mediastinum and Mayuri: -Right hilar lymph node measuring 1.9 cm, (5/71). -Right subcarinal lymph node measuring 1.5 cm, (5/84). Esophagus: Enteric tube coursing into the stomach. No wall thickening. No hiatal hernia. Upper Abdomen: Probable hepatic steatosis. No adrenal nodule. IMPRESSION: 1. No pulmonary embolism. 2. Bilateral dependent airspace opacity. This could represent compressive atelectasis. There is additional scattered opacity which could represent mild infectious/inflammatory etiology. Suspected pulmonary edema. 3. Right upper lobe pulmonary nodule measuring 2.2 cm. Suspicious for lung cancer. 4. Right hilar and subcarinal adenopathy suspicious for metastatic disease. Preliminary findings were discussed with Dr. Scherer at 1:50 a.m. Dictated by: Onesimo Cisneros M.D. on 06/21/2024 at 1:51 Approved by: Onesimo Cisneros M.D. on 06/21/2024 at 2:01
[2024-06-20 23:39] LABS: Reflexed Lactate in 2 Hours Y
--- NOTE | 2024-06-20 23:46 | RT ---
Patient transported to CT via [facility] ventilator. No adverse reactions or occurances. Patients sats remained 96-98% throughout procedure.
[2024-06-21] VITALS (38 sets, daily range): BP systolic 90–148; BP diastolic 53–66; PULSE 82–96; RESP 17–20; O2SAT 94–98
[2024-06-21 00:12] LABS: Lactate 2HR (Lactic Acid Rflx) 2.3 mmol/L (0.7-2.1)
[2024-06-21 00:14] LABS: UR Morphine/Opiate cutoff 300 Negative (Negative); Ur Creatinine Normal (Normal); Ur Specific Gravity Normal (Normal); Urine Amphetamines Negative (Negative); Urine Barbiturates Negative (Negative); Urine Benzodiazepines Negative (Negative); Urine Cocaine Negative (Negative); Urine MDMA Negative (Negative); Urine Methadone Negative (Negative); Urine Methamphetamines Negative (Negative); Urine Oxycodone Negative (Negative); Urine Phencyclidine Negative (Negative); Urine Tetrahydrocannabinol Negative (Negative); Urine Tricyclic Antidepressant Negative (Negative); Urine pH Normal (Normal)
[2024-06-21 00:21] LABS: NT-proBNP (BNP-Adult 18+) 187 pg/mL (<125)
[2024-06-21] MEDS: SODIUM CHLORIDE 0.9% 1,000 ML 125 ML IV (00:27)
--- NOTE | 2024-06-21 02:20 | PC.NURSE ---
patients belonging (cloethes, shoes, wallet, cell phone, cross necklace and dentures sent with Karis (ex-). her number is [phone]. daughter Madisyn number [phone]. daughter Darell number [phone]
[2024-06-21] MEDS: PIPERACILLIN/TAZO 4.5 GM in SODIUM CHLORIDE 0.9% 100 ML IV (02:30)
[2024-06-21] MEDS: NOREPINEPHRINE BITARTRATE/D5W 4 MG/250 ML PLAST..BAG 41.385 MG IV (03:39)
== END 2024-06-21 03:55 | disposition short-term general hospital (02) ==
PROVIDERS: Emergency Provider Emergency Medicine; PCP Internal Medicine
DX: I46.9 Cardiac arrest, cause unspecified (principal); J69.0 Pneumonitis due to inhalation of food and vomit; R91.1 Solitary pulmonary nodule; R59.0 Localized enlarged lymph nodes; Z87.891 Personal history of nicotine dependence
CPT/HCPCS: 31500; 36415; 36556; 36600; 70450; 71045; 71275; 80053; 80305; 80320; 82550; 82805; 83605; 83690; 83735; 83880; 84100; 84484; 85007; 85025; 85610; 85730; 87040; 92950; 93005; 94799; 96365; 96366; 96368; 96375; 99285; 99291; 99292; J0171; J2250; J2543; J3010; Q9967

== ENCOUNTER 2024-10-09 07:05 | Outpatient (CLI) | payer MEDICARE, SELFPAY ==
[2024-06-21 01:50] VITALS: PULSE 86; RESP 20; O2SAT 97
--- NOTE | 2024-10-09 07:08 | DI.CT.S_ITS ---
PROCEDURE: CT BIOPSY LUNG RT Sedation analgesia for 0 minutes. INDICATIONS: hypermetabolic lung nodule TECHNIQUE: The indications, alternatives, benefits, risks, and possible complications of the procedure were communicated to the patient. Informed written consent from the patient was obtained and placed in the chart. Continuous EKG and hemodynamic monitoring was started by trained personnel. The patient was brought to the CT suite and vp strategic planning spiral CT imaging was performed with localization grid. Based on the needle trajectory and the intervening vessels, the decision was made to not undergo CT-guided biopsy at this time. COMPARISON: None. FINDINGS/IMPRESSION: CT-guided lung biopsy was canceled for safety precautions. Recommend endobronchial biopsy (referral to Dr. Emory Dinero, cardiothoracic surgery). Dictated by: Jose Delatorre M.D. on 10/09/2024 at 11:55 Approved by: Jose Delatorre M.D. on 10/09/2024 at 11:58
[2024-10-09 08:10] VITALS: BP 174/75; PULSE 78; RESP 18; TEMP 36.7; O2SAT 94
[2024-10-09 08:15] LABS: Hematocrit 36.4 % (41-53); Hemoglobin 12.2 g/dL (13.5-17.5); Mean Corpuscular HGB Conc 33.6 % (30-36); Mean Corpuscular Hemoglobin 27.2 PG (26-34); Mean Corpuscular Volume 80.9 fL (80-100); Platelet Count 251 X10^3/uL (150-400); Red Blood Cell Count 4.51 X10^6/uL (4.5-5.9); Red Cell Distribution Width 16.1 % (11.6-14.8); White Blood Cell Count 10.5 X10^3/uL (4.5-11.0)
[2024-10-09 08:28] LABS: INR 1.4 (0.9-1.3); Prothrombin Time 16.1 SECONDS (9.4-12.5)
[2024-10-09 08:30] LABS: PTT Partial Thromboplastin Tim 42 SECONDS (25.1-36.5)
== END 2024-10-09 09:05 | disposition home or self-care (01) ==
PROVIDERS: PCP Internal Medicine; Visit Provider Radiology Diagnostic Radiology
DX: R91.1 Solitary pulmonary nodule (principal)
CPT/HCPCS: 32408; 82962; 85027; 85610; 85730; J2250; J3010

== ENCOUNTER → 2025-01-29 14:35 | Outpatient (CLI) | payer MEDICARE, MEDICAID, SELFPAY ==
[2024-06-21 01:50] VITALS: PULSE 86; RESP 20; O2SAT 97
--- NOTE | 2025-01-29 14:37 | DI.ECHO.S_ITS ---
[facility] : : [address] [place] : : [id number] : : Phone: [phone] Echocardiogram Report + + :Name: SHELDON WILEY Study Date: 01/29/2025 Height: 67 in : :[facility] ReadingLocation: Weight: 225 lb : : Gender: Male BSA: 2.1 m2 : :: 1960 Age: 64 yrs BP: 140/76 mmHg: :Reason For Study: SYSTOLIC HEART FAILURE : :Ordering Physician: TENA, : :ASHLEY Wild Performed By: Layton Tidwell : :Referring: ASHLEY DENNIS : + + Interpretation Summary The study quality was technically difficult. Left ventricular wall thickness is mildly increased. Left ventricular ejection fraction is estimated to be 40 +/- 5%. The right ventricle is mild to moderately dilated. Right ventricular systolic function is mildly reduced. No obvious valvular abnormalities. Pulmonary artery pressures cannot be estimated because of the lack of a measurable TR jet velocity. Compared to prior study 11/22/2022, the biventricular function appears reduced and the right ventricle appears. Procedure: A two-dimensional transthoracic echocardiogram with color flow and Doppler was performed. There is no prior echocardiogram noted for this patient. The study quality was technically difficult. The patient was in normal sinus rhythm during the exam. Left Ventricle: The left ventricle is normal in size. Left ventricular wall thickness is mildly increased. There is no ventricular septal defect visualized. Left ventricular ejection fraction is estimated to be 40 +/- 5%. Diastolic parameters suggest a relaxation abnormality of the left ventricle, consistent with probable normal filling pressures. Right Ventricle: The right ventricle is mild to moderately dilated. Right ventricular systolic function is mildly reduced. Atria: The left atrial size is normal. Right atrial size is normal. There is no Doppler evidence for an interatrial shunt. Mitral Valve: The mitral valve is grossly normal. There is no mitral regurgitation noted. Aortic Valve: The aortic valve is trileaflet. The aortic valve opens well. There is no aortic valve stenosis. No aortic regurgitation is present. Tricuspid Valve: The tricuspid valve leaflets are thin and pliable. No tricuspid regurgitation. Pulmonary artery pressures cannot be estimated because of the lack of a measurable TR jet velocity. Pulmonic Valve: The pulmonic valve is not well visualized. There is no pulmonic valvular regurgitation. Great Vessels: The aortic root is normal size. The ascending aorta could not be visualized. The pulmonary is not well visualized. The inferior vena cava was not visualized. Pericardium/ Pleura There is no pericardial effusion. There is no pleural effusion. MMode/2D Measurements & Calculations LVIDd: 5.5 cm LVOT diam: 2.0 cm LVIDs: 3.9 cm Ao root diam: 2.9 cm FS: 29.1 % EPSS: 1.2 cm IVSd: 1.5 cm LVPWd: 1.5 cm LV mercer. diameter/BSA (cm/m^2): 2.6 LV sys. diameter/BSA (cm/m^2): 1.8 LA A2 area: 18.0 cm2 RA long axis: 5.0 cm LA A4 area: 22.1 cm2 RA area: 15.2 cm2 LA length (vol): 5.7 cm RA vol: 39.8 ml LA vol: 59.2 ml RA : 18.7 ml/m2 LA vol index: 27.9 ml/m2 RVD1 (basal): 4.7 cm RVD2 (mid): 2.3 cm TAPSE: 2.2 cm Doppler Measurements & Calculations Ao V2 max: 159.8 cm/sec LVOT Max Rahul: 105.2 cm/sec Ao V2 mean: 124.9 cm/sec LV V1 max P.4 mmHg Ao max P.2 mmHg LV V1 VTI: 20.6 cm Ao mean P.7 mmHg PIERO(I,D): 2.0 cm2 Ao V2 VTI: 31.8 cm PIERO(V,D): 2.0 cm2 sev ratio: 0.65 PIERO indexed to BSA (cm^2/m^2): 0.95 MV E max rahul: 56.6 cm/sec PA V2 max: 141.4 cm/sec MV A max rahul: 72.5 cm/sec PA V2 mean: 94.1 cm/sec MV E/A: 0.78 PA mean P.0 mmHg Med Peak E' Rahul: 5.0 cm/sec PA pr(Accel): 32.8 mmHg E/E' med: 11.4 Lat Peak E' Rahul: 6.9 cm/sec E/E' lat: 8.2 E/e' average: 9.8 MV dec time: 0.25 sec SV(LVOT): 64.1 ml Reading Physician:03:52 PM
== END ==
LOC: ECHO 14:36
PROVIDERS: PCP Internal Medicine; Referring Provider Internal Medicine; Visit Provider Internal Medicine Cardiovascular Disease
DX: I50.22 Chronic systolic (congestive) heart failure (principal)
CPT/HCPCS: 93306

== ENCOUNTER 2025-04-05 08:09 | Emergency (ER) | payer MEDICARE, SELFPAY ==
[2024-06-21 01:50] VITALS: PULSE 86; RESP 20; O2SAT 97
[2025-04-05] VITALS (24 sets, daily range): BP systolic 112–160; BP diastolic 56–83; PULSE 72–107; RESP 18–31; TEMP 37.2; O2SAT 95–98; BMI 36.3
--- NOTE | 2025-04-05 08:25 | EKG_ITS ---
[facility] [id number] [place] [id number] Test Date: 2025-04-05 Pat Name: Neptali Prince Department: [facility] Room: Gender: Male Medical Office Rep: FREIDA : 1960 Requested By: Order Number: [id number] Reading MD: Neptali Garg MD Measurements Intervals [place] Rate: 103 P: ID: QRS: 73 QRSD: 90 T: -83 QT: 350 QTc: 458 Interpretive Statements Atrial fibrillation with rapid ventricular response Nonspecific T wave abnormality Electronically Signed On 04-05-2025 9:49:46 PDT by Neptali Garg MD
--- NOTE | 2025-04-05 08:25 | DI.RAD.S_ITS ---
PROCEDURE: XR CHEST 1V INDICATIONS: Chest Pain TECHNIQUE: One view of the chest was acquired. COMPARISON: [facility], CR, XR CHEST 1V, 06/20/2024, 22:38. [facility], CR, XR CHEST 1V, 06/20/2024, 21:58. FINDINGS: Surgical changes and devices: None. Lungs and pleura: Lungs are clear. No pleural effusions or pneumothorax. Mediastinum: Cardiac silhouette is mildly enlarged. Bones and chest wall: No suspicious bony lesions. Overlying soft tissues appear unremarkable. IMPRESSION: No acute cardiopulmonary abnormality is seen. Approved by: Oswaldo Reynoso M.D. on 04/05/2025 at 8:47
--- NOTE | 2025-04-05 08:47 | ED.ARRPALP ---
HPI - Arrhythmia/Palpitations General Chief Complaint: Arrhythmia/Palpitations Stated Complaint: Having SOB , Racing heart 4 days Time Seen by Provider: 04/05/25 08:36 Source: patient Mode of arrival: Ambulatory History of Present Illness HPI narrative: Patient is a 64-year-old male history of COPD chronically on home oxygen, atrial fibrillation on Eliquis but only 2.5 twice a day, lung cancer just finished radiation presenting today with chest heaviness ongoing for about 1 week. He reports that about a year ago he had a cardiac arrest and ultimately transferred to [facility]. There he was found to have atrial fibrillation he says he was cardioverted and stayed 2 weeks. Now he reports some increasing shortness of breath he feels like his chest is squeezing sometimes he feels dizzy and lightheaded. His watch reported that his heart rate was up into the 160s 2 days ago. He tried calling his doctor no response ultimately came into the ED today. No nausea or vomiting. Reports he did just finish radiation for lung cancer which sounds like can be treated with immunotherapy. Related Data Home Medications ?Medication ?Instructions ?Recorded ?Confirmed amlodipine 5 mg tablet 5 mg PO DAILY 08/20/23 11/03/24 atorvastatin 20 mg tablet 20 mg PO BEDTIME 08/20/23 11/03/24 budesonide 160 mcg-glycopyr 9 2 inh inhalation BID 08/20/23 11/03/24 mcg-formot 4.8 mcg/actuation HFA inhaler (Breztri Aerosphere) fluticasone propionate 50 2 spray intranasal QDAY 08/20/23 11/03/24 mcg/actuation nasal spray,suspension (Allergy Relief (fluticasone)) furosemide 20 mg tablet 20 mg PO DAILY 08/20/23 11/03/24 insulin glargine U-300 conc 300 50 unit SUBCUT DAILY 08/20/23 11/03/24 unit/mL (3 mL) subcutaneous pen (Toujeo Max U-300 SoloStar) metformin 850 mg tablet 850 mg PO TID 08/20/23 11/03/24 metoprolol succinate 50 mg 50 mg PO DAILY 08/20/23 11/03/24 tablet,extended release 24 hr omeprazole 20 mg tablet,delayed 20 mg PO DAILY 08/20/23 11/03/24 release tamsulosin 0.4 mg capsule 0.4 mg PO DAILY 08/20/23 11/03/24 apixaban 2.5 mg tablet 2.5 mg PO BID 07/24/24 11/03/24 Previous Rx's ?Medication ?Instructions ?Recorded azithromycin 250 mg tablet 250 mg PO 3XW #36 tabs 08/21/23 Portable Oxygen #1 ea 12/09/23 budesonide 160 mcg-glycopyr 9 2 inh inhalation BID #10.7 grams 01/28/25 mcg-formot 4.8 mcg/actuation HFA inhaler (Breztri Aerosphere) Allergies Allergy/AdvReac Type Severity Reaction Status Date / Time No Known Drug Allergies Allergy Verified 04/05/25 08:18 Patient History Social History Smoking Status: Former smoker Smoking Status: Former smoker Exam Initial Vital Signs Initial Vital Signs: Vital Signs Temperature 98.9 F 04/05/25 08:18 Pulse Rate 107 H 04/05/25 08:18 Respiratory Rate 26 H 04/05/25 08:18 Blood Pressure 141/80 H 04/05/25 08:18 Pulse Oximetry 96 04/05/25 08:18 Oxygen Delivery Method Nasal Cannula 04/05/25 08:18 Oxygen Flow Rate 3 04/05/25 08:18 GENERAL: Alert 64-year-old male and in no acute distress. HEENT: Head atraumatic,EOMI, pupils reactive, face symmetric, moist mucous membranes CARDIOVASCULAR: Irregular RESPIRATORY: Decreased breath sounds bilaterally ABDOMEN: Soft, nontender. Normoactive bowel sounds all 4 quadrants. No guarding or rebound. EXTREMITIES: Normal range of motion, no clubbing or edema. Neurovascularly intact NEUROLOGICAL: Alert and oriented x4.Normal gait and speech. Cranial nerves II through XII grossly intact. SKIN: Warm, dry, no laceration, no petechiae, no rashes or lesions. Procedures Cardioversion Time of Cardioversion: 12:02 Consent Signed: Yes Indication: Atrial fibrillation Stability: Stable Number of attempts (shocks): 1 Joules used: 120 Cardiac rhythm post-cardioversion: Normal sinus rhythm Procedural Sedation Time of procedure: 12:02 Consent signed: Yes Time out performed: Yes Indication: cardioversion ASA Class: III Mallampati Airway Classification: Class III IV Propofol dose (mg): 50 Intraservice time/total sedation time (min): 12 ED Sedation Level: Moderate (Concious) Patient Tolerated Procedure: Well and No complications Complications: none Course Orders Ordered: ED Orders 04/05/25 08:25 XR chest 1V Stat EKG-12 Lead Stat 04/05/25 08:45 Complete Blood Count AUTO DIFF Stat Comprehensive Metabolic Panel Stat Lipase Stat Magnesium Stat NT-proBNP (BNP-Adult 18+) Stat PTT Partial Thromboplastin Luther Stat Prothrombin Time INR Stat Troponin & CK Cardiac Panel Stat 04/05/25 09:04 CT angio chest PE protocol Stat Discontinued Medications Aspirin (Aspirin 81 Mg Chew Tab) 324 mg PO NOW ONE Stop: 04/05/25 08:26 Last Admin: 04/05/25 09:18 Dose: Not Given Documented By: [facility] Propofol (Propofol 200 Mg/20 Ml Vial) 105 mg 1 mg/kg (105 mg) IV NOW ONE Stop: 04/05/25 11:48 Last Admin: 04/05/25 11:59 Dose: 50 mg Documented By: Vital Signs Vital signs: Vital Signs - 8 hr 04/05/25 08:18 04/05/25 08:33 04/05/25 08:39 Temperature 98.9 F Pulse Rate 107 H 107 H 104 H Respiratory Rate 26 H Blood Pressure 141/80 H Pulse Oximetry 96 95 Oxygen Delivery Method Nasal Cannula Oxygen Flow Rate 3 04/05/25 08:39 04/05/25 09:00 04/05/25 09:00 Temperature Pulse Rate 96 H Respiratory Rate 25 H Blood Pressure 139/79 137/60 Pulse Oximetry 95 Oxygen Delivery Method Oxygen Flow Rate 04/05/25 09:30 04/05/25 09:30 04/05/25 10:00 Temperature Pulse Rate 90 96 H Respiratory Rate 24 27 H Blood Pressure 131/62 Pulse Oximetry 95 97 Oxygen Delivery Method Oxygen Flow Rate 04/05/25 10:30 04/05/25 10:34 04/05/25 10:34 Temperature Pulse Rate 87 94 H Respiratory Rate 24 Blood Pressure 150/76 H Pulse Oximetry 97 96 Oxygen Delivery Method Oxygen Flow Rate 04/05/25 11:00 04/05/25 11:30 04/05/25 11:50 Temperature Pulse Rate 90 88 95 H Respiratory Rate 21 23 31 H Blood Pressure Pulse Oximetry 97 96 98 Oxygen Delivery Method Oxygen Flow Rate 04/05/25 11:50 04/05/25 11:58 04/05/25 11:58 Temperature Pulse Rate 83 Respiratory Rate 22 Blood Pressure 160/83 H 153/69 H Pulse Oximetry 97 Oxygen Delivery Method Oxygen Flow Rate 04/05/25 12:00 04/05/25 12:00 04/05/25 12:04 Temperature Pulse Rate 78 77 Respiratory Rate 25 H 20 Blood Pressure 124/59 L Pulse Oximetry 96 97 Oxygen Delivery Method Oxygen Flow Rate 04/05/25 12:04 04/05/25 12:07 04/05/25 12:08 Temperature Pulse Rate 77 Respiratory Rate 18 Blood Pressure 139/65 126/63 Pulse Oximetry Oxygen Delivery Method Oxygen Flow Rate 04/05/25 12:08 04/05/25 12:12 04/05/25 12:12 Temperature Pulse Rate 77 75 Respiratory Rate 19 21 Blood Pressure 117/61 Pulse Oximetry 98 96 Oxygen Delivery Method Nasal Cannula Oxygen Flow Rate 3 3 04/05/25 12:16 04/05/25 12:16 04/05/25 12:20 Temperature Pulse Rate 76 75 Respiratory Rate 21 23 Blood Pressure 117/63 Pulse Oximetry 97 97 Oxygen Delivery Method Oxygen Flow Rate 3 3 04/05/25 12:20 04/05/25 12:24 04/05/25 12:24 Temperature Pulse Rate 75 Respiratory Rate 23 Blood Pressure 130/70 123/65 Pulse Oximetry 97 Oxygen Delivery Method Oxygen Flow Rate 04/05/25 12:28 04/05/25 12:28 04/05/25 12:30 Temperature Pulse Rate 75 80 Respiratory Rate 20 19 Blood Pressure 112/56 L Pulse Oximetry 98 97 Oxygen Delivery Method Oxygen Flow Rate 3 3 04/05/25 12:32 04/05/25 12:32 04/05/25 12:36 Temperature Pulse Rate 72 73 Respiratory Rate 20 20 Blood Pressure 146/68 H Pulse Oximetry 97 97 Oxygen Delivery Method Oxygen Flow Rate 3 3 04/05/25 12:36 Temperature Pulse Rate Respiratory Rate Blood Pressure 139/68 Pulse Oximetry Oxygen Delivery Method Oxygen Flow Rate MDM - Arrhythmia/Palpitations Lab Data 04/05/25 08:45 04/05/25 08:45 Labs: Lab Results 04/05/25 Range/Units 08:45 WBC 10.2 (4.5-11.0) X10^3/uL RBC 5.07 (4.5-5.9) X10^6/uL Hgb 13.5 (13.5-17.5) g/dL Hct 41.0 (41-53) % MCV 80.9 (80-100) fL MCH 26.7 (26-34) PG MCHC 33.0 (30-36) % RDW 16.9 H (11.6-14.8) % Plt Count 205 (150-400) X10^3/uL Neut % (Auto) 71.2 (50-75) % Lymph % (Auto) 19.2 L (25-40) % [place] % (Auto) 7.1 (3-14) % Eos % (Auto) 1.1 L (2-4) % Baso % (Auto) 1.4 (0-2) % Neut # (Auto) 7300 H (1672-9042) /uL Lymph # (Auto) 2000 (5808-2001) /uL [place] # (Auto) 700 (0-900) /uL Eos # (Auto) 100 (0-450) /uL Baso # (Auto) 100 (0-100) /uL PT 12.5 (9.4-12.5) SECONDS INR 1.1 (0.9-1.3) APTT 32 (25.1-36.5) SECONDS Sodium 143 (137-145) mmol/L Potassium 4.0 (3.4-5.1) mmol/L Chloride 106 (98-107) mmol/L Carbon Dioxide 30 (22-32) mmol/L BUN 24 H (9-20) mg/dL Creatinine 1.10 (0.66-1.25) mg/dL Estimated GFR > 60 (>60) mL/min BUN/Creatinine Ratio 21.8 (6-22) Glucose 203 H (70-99) mg/dL Calcium 8.5 (8.4-10.2) mg/dL Magnesium 1.7 (1.6-2.3) mg/dL Total Bilirubin 0.6 (0.2-1.3) mg/dL AST 22 (17-59) IU/L ALT 25 (<50) IU/L Alkaline Phosphatase 101 (38-126) U/L Total Creatine Kinase 36 L (55-170) U/L Troponin I 0.013 (0.01-0.034) ng/mL NT-Pro-B Natriuret Pep 1800 H (<125) pg/mL Total Protein 7.5 (6.3-8.2) g/dL Albumin 3.9 (3.5-5.0) g/dL Globulin 3.6 (1.7-4.1) g/dL Albumin/Globulin Ratio 1.1 (1.0-2.8) Lipase 48 (23-300) U/L Imaging Data Chest x-ray: Radiologist's Impresson: PROCEDURE: XR CHEST 1V INDICATIONS: Chest Pain TECHNIQUE: One view of the chest was acquired. COMPARISON: [facility], CR, XR CHEST 1V, 06/20/2024, 22:38. [facility], CR, XR CHEST 1V, 06/20/2024, 21:58. FINDINGS: Surgical changes and devices: None. Lungs and pleura: Lungs are clear. No pleural effusions or pneumothorax. Mediastinum: Cardiac silhouette is mildly enlarged. Bones and chest wall: No suspicious bony lesions. Overlying soft tissues appear unremarkable. IMPRESSION: No acute cardiopulmonary abnormality is seen. Approved by: Oswaldo Reynoso M.D. on 04/05/2025 at 8:47 CT scan - chest: Radiologist's Impresson: PROCEDURE: CT ANGIO CHEST PE PROTOCOL INDICATIONS: lung cancer short of breath TECHNIQUE: After the administration of intravenous contrast, 2 mm thick sections acquired from the pulmonary apices to the posterior costophrenic angles. 3-dimensional maximum intensity projection (MIP) coronal and sagittal reformats were then acquired through the thorax. For radiation dose reduction, the following was used: automated exposure control, adjustment of mA and/or kV according to patient size. COMPARISON: [facility], CT, CT VERAN CHEST, 12/04/2024, 14:36. [facility], [place], [place] PET CT FUSION SKULL 2 THIGH, 09/02/2024, 10:32. [facility], CT, CT [place], 12/24/2024, 11:04. [facility], CR, XR CHEST 1V, 04/05/2025, 8:30. [facility], CT, CT ANGIO CHEST PE PROTOCOL, 06/20/2024, 23:08. FINDINGS: Image quality: Diagnostic. Pulmonary arteries: Pulmonary arteries are normal in size, and demonstrate no intraluminal filling defects to suggest central pulmonary embolism. Lower Neck: No enlarged lymph nodes. Thyroid: No thyroid nodules which require sonographic follow up, per consensus guidelines. Axillae: No enlarged lymph nodes. Chest Wall: Unremarkable. Bones: Subacute or chronic healing or healed left 5th and 6th rib fractures. Lungs and Pleura: No pneumothorax or pleural effusions. Previously seen right upper lobe malignant pulmonary nodule has decreased in size, now measuring approximately 1.7 x 0.9 cm (5/167). Left lower lobe 6 mm nodule (5/187) does not appear significantly changed. Stable calcified granulomas. Heart: Heart size is normal. No pericardial effusion. Thoracic Vessels: No aortic aneurysm. Mediastinum and Mayuri: No enlarged lymph nodes. Esophagus: No wall thickening. No hiatal hernia. Upper Abdomen: Visualized upper abdomen solid organs and bowel loops appear normal. IMPRESSION: 1. No acute pulmonary embolus. 2. Right upper lobe pulmonary nodule has significant decreased in size when compared to the CT from 12/24/2024, compatible with response to treatment. 3. Stable indeterminate 6 mm left lower lobe pulmonary nodule. Recommend attention on follow-up. Approved by: Oswaldo Reynoso M.D. on 04/05/2025 at 10:05 ECG Data Attestation: I personally reviewed and interpreted this ECG as follows: Prior ECG tracings: available for review Interpretation: Atrial fibrillation rate [address] ST depressions in lead 2 he had 3 V5 V6, similar to prior repeat EKGs shows a normal sinus rhythm rate 75 no ischemia MDM Narrative Medical decision making narrative: MDM CC: Chest pain shortness of breath Complicating co-morbidities: COPD on home O2, lung cancer just finished radiation, cardiac arrest, atrial fibrillation on Eliquis Data collected from: Patient Medical records reviewed: Only records are from May 2024 for his cardiac arrest and hospitalization for the Differential considered: Atrial fibrillation COPD exacerbation PH Exam documented above, pertinent findings include: Alert 64-year-old male, decreased breath sounds bilaterally irregular heart rate no significant pathology Lab Test results independently reviewed as above. Pertinent findings: Troponin negative BNP 1800 CBC no leukocytosis no anemia CMP no electrolyte abnormality no SHANNAN glucose 203 Independently reviewed EKG as above Atrial fibrillation rate 103 no ischemia similar to prior Imaging studies independently reviewed: Chest x-ray no acute cardiopulmonary process CT angio no PE decrease in right pulmonary nodule since 12/24/2024 stable left lower lobe nodule Consultations: 1030 Dr. Argueta states that patient had echocardiogram in January that shows an EF of 40-45%. In December he was on Eliquis 5 mg twice a day. Recommends keeping patient in sinus rhythm if possible. Treatments: Cardioversion with propofol Re-evaluations: Normal sinus rhythm patient tolerated procedure well Discussion: 64-year-old male presenting today with atrial fibrillation. He reports he has been exercising and says that his heart rate really never goes above 90. Over the last 1 week and definitely over the last 3 days his heart rate has been more elevated. Initially thought that patient was only on Eliquis 2.5 mg however upon further evaluation it is confirmed that patient is on 5 mg twice a day. Patient reports that he has not missed any medications. Cardiology recommended cardioversion for rhythm control. Patient would like to be cardioverted he easily cardioverted now in sinus rhythm. Follow-up with Cardiology Discharge Plan Departure Patient Disposition: Home Clinical Impression: Atrial fibrillation Instructions: DI for Atrial Fibrillation Activity Restrictions/Additional Instructions: *You have been diagnosed with atrial fibrillation *What to do: Please make sure you call your [facility] to follow-up *Continue to take medications as directed Continue all medications as prescribed make sure taking apixaban 5 mg twice daily *Follow up with your primary care provider in 2-3 days or call [phone] *Return to ER if you should have increasing chest pain shortness of breath or any new, worsening or concerning symptoms Prescriptions: No Action (DME) Portable Oxygen See Rx Instructions .Route .MEDSUPPLY Qty: 1 0RF Rx Instructions: Continue supplemental oxygen at 2 L. Goal saturations between 90 92%. Breztri Aerosphere 160-9-4.8 mcg/actuation HFA aerosol inhaler 2 inh inhalation BID Qty: 10.7 6RF Toujeo Max U-300 SoloStar 300 unit/mL (3 mL) insulin pen 50 unit SUBCUT DAILY Breztri Aerosphere 160-9-4.8 mcg/actuation HFA aerosol inhaler 2 inh inhalation BID metformin 850 mg tablet 850 mg PO TID atorvastatin 20 mg tablet 20 mg PO BEDTIME furosemide 20 mg tablet 20 mg PO DAILY omeprazole 20 mg tablet,delayed release (DR/EC) 20 mg PO DAILY amlodipine 5 mg tablet 5 mg PO DAILY metoprolol succinate 50 mg tablet extended release 24 hr 50 mg PO DAILY tamsulosin 0.4 mg capsule 0.4 mg PO DAILY fluticasone propionate [Allergy Relief (fluticasone)] 50 mcg/actuation spray,suspension 2 spray intranasal QDAY Rx Instructions: administer into each nostril azithromycin 250 mg tablet 250 mg PO 3XW Qty: 36 3RF Rx Instructions: 1 tab by mouth 3XW M,W,F apixaban 2.5 mg tablet 2.5 mg PO BID Referrals: Tigre Smith MD [Primary Care Provider, Internal Medicine] Stand Alone Forms: Patient Portal/API
[2025-04-05 08:53] LABS: Add Manual Diff / Slide Review NO; Hematocrit 41.0 % (41-53); Hemoglobin 13.5 g/dL (13.5-17.5); Lymphocytes Absolute Auto 2000 /uL (1100-4500); Mean Corpuscular HGB Conc 33.0 % (30-36); Mean Corpuscular Hemoglobin 26.7 PG (26-34); Mean Corpuscular Volume 80.9 fL (80-100); Platelet Count 205 X10^3/uL (150-400)
--- NOTE | 2025-04-05 09:04 | DI.CT.S_ITS ---
PROCEDURE: CT ANGIO CHEST PE PROTOCOL INDICATIONS: lung cancer short of breath TECHNIQUE: After the administration of intravenous contrast, 2 mm thick sections acquired from the pulmonary apices to the posterior costophrenic angles. 3-dimensional maximum intensity projection (MIP) coronal and sagittal reformats were then acquired through the thorax. For radiation dose reduction, the following was used: automated exposure control, adjustment of mA and/or kV according to patient size. COMPARISON: [facility], CT, CT VERAN CHEST, 12/04/2024, 14:36. [facility], [place], [place] CT FUSION SKULL 2 THIGH, 09/02/2024, 10:32. [facility], CT, CT [place], 12/24/2024, 11:04. [facility], CR, XR CHEST 1V, 04/05/2025, 8:30. [facility], CT, CT ANGIO CHEST PE PROTOCOL, 06/20/2024, 23:08. FINDINGS: Image quality: Diagnostic. Pulmonary arteries: Pulmonary arteries are normal in size, and demonstrate no intraluminal filling defects to suggest central pulmonary embolism. Lower Neck: No enlarged lymph nodes. Thyroid: No thyroid nodules which require sonographic follow up, per consensus guidelines. Axillae: No enlarged lymph nodes. Chest Wall: Unremarkable. Bones: Subacute or chronic healing or healed left 5th and 6th rib fractures. Lungs and Pleura: No pneumothorax or pleural effusions. Previously seen right upper lobe malignant pulmonary nodule has decreased in size, now measuring approximately 1.7 x 0.9 cm (5/167). Left lower lobe 6 mm nodule (5/187) does not appear significantly changed. Stable calcified granulomas. Heart: Heart size is normal. No pericardial effusion. Thoracic Vessels: No aortic aneurysm. Mediastinum and Mayuri: No enlarged lymph nodes. Esophagus: No wall thickening. No hiatal hernia. Upper Abdomen: Visualized upper abdomen solid organs and bowel loops appear normal. IMPRESSION: 1. No acute pulmonary embolus. 2. Right upper lobe pulmonary nodule has significant decreased in size when compared to the CT from 12/24/2024, compatible with response to treatment. 3. Stable indeterminate 6 mm left lower lobe pulmonary nodule. Recommend attention on follow-up. Approved by: Oswaldo Reynoso M.D. on 04/05/2025 at 10:05
[2025-04-05 09:08] LABS: INR 1.1 (0.9-1.3); Prothrombin Time 12.5 SECONDS (9.4-12.5)
[2025-04-05 09:10] LABS: PTT Partial Thromboplastin Tim 32 SECONDS (25.1-36.5)
[2025-04-05 09:12] LABS: Alanine Aminotransferase 25 IU/L (<50); Albumin 3.9 g/dL (3.5-5.0); Albumin Globulin Ratio 1.1 (1.0-2.8); Alkaline Phosphatase 101 U/L (38-126); Blood Urea Nitrogen 24 mg/dL (9-20); Calcium 8.5 mg/dL (8.4-10.2); Carbon Dioxide 30 mmol/L (22-32); Chloride 106 mmol/L (98-107); Creatine Kinase 36 U/L (55-170); Estimated Glomerular Filt Rate > 60 mL/min (>60); Globulin 3.6 g/dL (1.7-4.1); Glucose 203 mg/dL (70-99); HEMOLYSIS < 15 (0-50); Lipase 48 U/L (23-300); Magnesium 1.7 mg/dL (1.6-2.3); Potassium 4.0 mmol/L (3.4-5.1); Sodium 143 mmol/L (137-145); Total Protein 7.5 g/dL (6.3-8.2)
[2025-04-05 09:27] LABS: NT-proBNP (BNP-Adult 18+) 1800 pg/mL (<125); Troponin I 0.013 ng/mL (0.01-0.034)
--- NOTE | 2025-04-05 12:04 | EKG_ITS ---
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
--- NOTE | 2025-04-05 12:53 | PC.NURSE ---
04/05/2025 @7229 RN reviewed DC instructions w/ pt. PT verbalized understanding and asked when he could ride his bike again. Dr. Lopez stated pt should rest today and could resume activities tomorrow as long as he feels well. @8079 RN walked pt via wheelchair out to waiting room to wait for ride. PT stated he was Feeling much better. DC to home.
== END 2025-04-05 12:50 | disposition home or self-care (01) ==
PROVIDERS: Emergency Provider Emergency Medicine; PCP Internal Medicine
DX: I48.91 Unspecified atrial fibrillation (principal); R07.9 Chest pain, unspecified; R42 Dizziness and giddiness; I25.2 Old myocardial infarction; Z79.01 Long term (current) use of anticoagulants; J44.9 Chronic obstructive pulmonary disease, unspecified; Z99.81 Dependence on supplemental oxygen
CPT/HCPCS: 71045; 71275; 80053; 82550; 83690; 83735; 83880; 84484; 85025; 85610; 85730; 92960; 93005; 93010; 99152; 99285; J2704; Q9967